=== PATIENT | male | born 2005 | race Caucasian/White ===

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

== ENCOUNTER 2024-12-02 17:30 | Emergency (ER) | payer MEDICAID, SELFPAY ==
--- NOTE | 2024-12-02 17:31 | ECG_ITS ---
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 Measurements Intervals [place] Rate: 89 P: 57 DC: 172 QRS: 206 QRSD: 98 T: 60 QT: 337 QTc: 412 Interpretive Statements SINUS RHYTHM INDETERMINATE AXIS INCOMPLETE RIGHT BUNDLE BRANCH BLOCK [90+ ms QRS DURATION, TERMINAL R IN V1/V2, 40+ ms S IN I/aVL/V4/V5/V6] EARLY REPOLARIZATION [ST ELEVATION WITH NORMALLY INFLECTED T-WAVE] No previous ECG available for comparison Electronically Signed On 12-06-2024 08:54:36 CDT by Ashu Deleon M.D. [id number]
--- NOTE | 2024-12-02 17:33 | ED_ITS ---
HPI - Syncope 2 General: Chief Complaint: Syncope Stated Complaint: Syncope, Abnormal EKG Time Seen by Provider: 12/02/24 17:30 Source: patient and EMS Mode of arrival: EMS Limitations: no limitations History of Present Illness: 19-year-old male states he is at [facility] today had been doing drills he states he sat down when he stood up he felt lightheaded diaphoretic and passed out. He states he had some lightheadedness since then but it is improved denies having syncopal event in the past but states he has felt lightheaded with activity before. He denies any chest pain denies any headache Associated symptoms: Deny abdominal pain, chest pain, fever(s), headache(s) or nausea Related Data Home Medications ?Medication ?Instructions ?Recorded ?Confirmed No Known Home Medications 07/07/2006/15 Allergies Allergy/AdvReac Type Severity Reaction Status Date / Time No Known Allergies Allergy Verified 07/07/20 12:09 Review of Systems 2 Const: Denies: fever(s), chills, body aches or change in appetite ENMT: Denies: throat pain or dental pain Card: Reports: syncope; Denies: chest pain Resp: Denies: dyspnea GI: Denies: abdominal pain, nausea, vomiting or diarrhea Musc: Denies: neck pain or back pain Skin/Breast: Denies: rash Neuro: Denies: headache(s) Physical Exam 2 Const: COMMON NORMALS: no acute distress, patient oriented x3 and healthy appearing HENMT: COMMON NORMALS: normocephalic and atraumatic HEAD & SCALP: n ormocephalic and atraumatic Eye: COMMON NORMALS: conjunctivae normal CONJUNCTIVA: Yes conjunctivae normal Neck/C-Spine: COMMON NORMALS: full ROM and supple Chest: COMMONS NORMALS: normal inspection of the chest and normal palpation of entire chest wall Resp: COMMON NORMALS: normal respiratory effort, No retractions, No use of accessory muscles and clear to auscultation bilaterally AUSCULTATION: clear to auscultation bilaterally Cardio: COMMON NORMALS: regular rate, regular rhythm and No murmurs present (Cardio) RATE: regular rate RHYTHM: regular rhythm Extremity: COMMON NORMALS: normal to inspection and full ROM Neuro: COMMON NORMALS: patient oriented x3, moves all extremities and no focal motor deficits Psych: COMMON NORMALS: mental status grossly normal, Normal thought process present and cooperative THOUGHT PROCESS: Normal thought process present Skin: COMMON NORMALS: no rashes or lesions noted and no wounds GENERAL SKIN EXAM: no rashes or lesions noted Course 2 Vital Signs: Vital signs: Vital Signs Temperature 98.2 F 12/02/24 18:04 Pulse Rate 70 12/02/24 18:04 Respiratory Rate 18 12/02/24 18:04 Blood Pressure 122/82 12/02/24 18:04 Pulse Oximetry 98 12/02/24 18:04 Oxygen Delivery Me thod Room Air 12/02/24 18:04 MDM - Syncope Medical Decision Making Patient presents after a syncopal event he has been well-appearing here normal vitals likely a vagal episode he stable for discharge follow-up PCP return if worsening. Medical Records I reviewed the patient's medical records. Lab Data I reviewed the patient's lab results. 12/02/24 17:22 12/02/24 17:22 Laboratory Results WBC 11.47 10^3/uL (4.5-13.0) 12/02/24 17:22 RBC 5.45 10^6/uL (3.85-5.65) 12/02/24 17:22 Hgb 16.50 g/dL (13.2-15.6) H 12/02/24 17:22 Hct 46.6 % (37-53) 12/02/24 17:22 MCV 85.5 fl (82-101) 12/02/24 17:22 MCH 30.3 pg (27-33) 12/02/24 17:22 MCHC 35.4 g/dL (30-55) 12/02/24 17:22 RDW 12.8 % (12.1-15.1) 12/02/24 17:22 Plt Count 210 10^3/cmm (157-399) 12/02/24 17:22 MPV 10.9 fL (7.4-10.4) H 12/02/24 17:22 Neut % (Auto) 70.4 % 12/02/24 17:22 Lymph % (Auto) 20.4 % 12/02/24 17:22 Dunn % (Auto) 7.9 % 12/02/24 17:22 Eos % (Auto) 0.3 % 12/02/24 17:22 Baso % (Auto) 0.4 % 12/02/24 17:22 Neut # (Auto) 8.06 10^3/uL (1.8-8.0) H 12/02/24 17:22 Lymph # (Auto) 2.3 10^3/uL (1.5-6.5) 12/02/24 17:22 Dunn # (Auto) 0.9 10^3/uL (0.2-0.9) 12/02/24 17:22 Eos # (Auto) 0.0 10^3/uL (0.0-0.8) 12/02/24 17:22 Baso # (Auto) 0.1 10^3/uL (0.0-0.1) 12/02/24 17:22 Nucleated RBC % (auto) 0 % 12/02/24 17:22 Nucleated RBCs # 0.0 /100WBC 12/02/24 17:22 Sodium 144 mmol/L (136-145) 12/02/24 17:22 Potassium 3.8 mmol/L (3.5-5.1) 12/02/24 17:22 Chloride 102 mmol/L (98-107) 12/02/24 17:22 Carbon Dioxide 20 mmol/L (22-29) L 12/02/24 17:22 Anion Gap 25.8 (5-19) H 12/02/24 17:22 BUN 13 mg/dL (6-20) 12/02/24 17:22 Creatinine 1.1 mg/dL (0.7-1.2) 12/02/24 17:22 GFR Calculation 85.3 mL/min (90-130) L 12/02/24 17:22 Glucose 101 mg/dL (65-115) 12/02/24 17:22 Calculated Osmolality 298 mOsm/kg (285-295) H 12/02/24 17:22 Calcium 10.1 mg/dL (8.5-10.5) 12/02/24 17:22 Total Bilirubin 0.6 mg/dL (0.15-1.2) 12/02/24 17:22 AST 20 U/L (0-40) 12/02/24 17:22 ALT 13 U/L (0-41) 12/02/24 17:22 Alkaline Phosphatase 92 U/L (40-130) 12/02/24 17:22 Total Protein 7.6 g/dL (6.6-8.7) 12/02/24 17:22 Albumin 5.2 g/dL (3.5-5.2) 12/02/24 17:22 Globulin 2.4 g/dL (1.3-4.6) 12/02/24 17:22 No radiology studies performed this visit EKG Data EKG 1: I personally reviewed and interpreted this EKG as follows: EKG interpretation date: 12/02/24 EKG interpretation time: 17:32 Interpretation: nsr hr [address] elevation qrs 98 qtc 384 Discharge Plan Discharge Patient Disposition: Home Clinical Impression: Syncope Condition: Stable Prescriptions: No Action No Known Home Medications Discharge Orders: Discharge ED (Routine); Ordered 12/02/24 Ordered By: Logan Mccord Referrals: Gideon Malave MD [Primary Care Provider, Pediatrics] Discharge Diet: Advance as tolerated Discharge Activity: Resume usual activity Patient Instructions: Syncope (ED) Print Language: Uzbek Coding Level of Care Code ED Software Technician for Clint Avendaño
--- OUTSIDE RECORDS SUMMARY | 2024-12-02 17:33 | XMS_ITS | Clinical Summary ---
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 08/21/2024 Rupture of UCL of right thumb 09/08/2021 Encounters Date Type Department Care Team Description 09/30/2024 External Device Data [facility] ABSTRACTION Provider, Abstract 09/17/2024 3:00 PM CDT - 09/17/2024 11:59 PM CDT Hospital Encounter [facility] [id number] [place] [id number] Discharge Disposition: Home or Self Care 09/15/2024 11:19 AM CDT - 09/15/2024 11:59 PM CDT Hospital Encounter [facility] [address] [place] [address] Discharge Disposition: Home or Self Care 09/10/2024 11:26 AM CDT - 09/10/2024 11:59 PM CDT Hospital Encounter [facility] [address] [place] [address] Discharge Disposition: Home or Self Care 09/05/2024 11:29 AM CDT - 09/05/2024 11:59 PM CDT Hospital Encounter [facility] [address] [place] [address] Discharge Disposition: Home or Self Care 09/04/2024 External Device Data STL ABSTRACTION Provider, Abstract 09/04/2024 External Device Data [facility] ABSTRACTION Provider, Abstract 09/04/2024 External Device Data [facility] ABSTRACTION Provider, Abstract 09/03/2024 11:28 AM CDT - 09/03/2024 11:59 PM CDT [facility] [address] [place] [address] Discharge Disposition: Home or Self Care 09/03/2024 External Device Data STL ABSTRACTION Provider, Abstract 09/02/2024 External Device Data STL ABSTRACTION Provider, Abstract from Last 3 Months Family History Medical History Relation Name Comments No Known Problems Father No Known Problems Mother Relation Name Status Comments Father Alive Mother Alive Social History Tobacco Use Types Packs/Day Years Used Date Smoking Tobacco: Never Smokeless Tobacco: Never Tobacco Cessation:Counseling Given: Not Answered Alcohol Use Standard Drinks/Week Comments Never 0 (1 standard drink = 0.6 oz pur e alcohol) Sex and Gender Information Value Date Recorded Sex Assigned at Male 08/21/2024 8:45 PM CDT Legal Sex Male 8:43 AM CDT Gender Identity Male 08/21/2024 8:45 PM CDT Sexual Orientation Not on file Last Filed Vital Signs Vital Sign Reading Time Taken Comments Blood Pressure 126/79 08/21/2024 1:31 PM CDT Pulse 119 04/18/2023 8:39 AM [employer] Temperature 37.6 C (99.6 F) 04/18/2023 8:39 AM [employer] Respiratory Rate 18 04/18/2023 8:39 AM [employer] Oxygen Saturation 96% 04/18/2023 8:39 AM [employer] Inhaled Oxygen Concentration - - Weight 72.6 kg (160 lb) 08/21/2024 1:31 PM CDT Height 182.9 cm (6') 08/21/2024 1:31 PM CDT Body Mass Index 21.7 08/21/2024 1:31 PM CDT Plan of Treatment Health Maintenance Due Date Last Done Comments CHLAMYDIA SCREENING (ANNUAL) 11-24 YEARS 12/01/2015 HPV VACCINES (1 - Male 3-dose series) 12/01/2019 DTAP/TDAP/TD VACCINES (2 - Tdap) 12/01/2023 03/23/20 06 HEPATITIS B VACCINES (1 of 3 - 19+ 3-dose series) 12/01/2023 INFLUENZA VACCINE (#1) 2024 03/23/2006, 2005 Medical Devices Implanted Type Area Inspector Set Up And Lay Out Device Identifier Shelf Expiration Date Model / Serial / Lot [place] Damari Swivelock 2.5x7mm [place] Eyelet [id number] - [id number] Implanted:Qty: 1 on 09/09/2021 by Rosette Watt MD at [facility] Right: Thumb [employer] 10/13/2025 [id number] / / [id number] [place] Suture 3.5x8.5mm Dx Swiveloc Xl Fe [id number] - [id number] Implanted:Qty: 1 on 09/09/2021 by Rosette Watt MD at [facility] Right: Thumb [employer] 01/13/2026 [id number] / / [id number] Insurance [facility] [id number] Advance Directives For more information, please contact: [phone] * Full Code (Latest Code Status on File) Date Activated Date Inactivated Comments 09/09/2021 8:28 AM 09/09/2021 2:52 PM
[2024-12-02 17:49] LABS: Hematocrit 46.6 % (37-53); Hemoglobin 16.50 g/dL (13.2-15.6); Mean Corpuscular HGB Conc 35.4 g/dL (30-55); Mean Corpuscular Hemoglobin 30.3 pg (27-33); Mean Corpuscular Volume 85.5 fl (82-101); Nucleated Red Blood Cells % 0 %; Platelet Count 210 10^3/cmm (157-399); Red Blood Count 5.45 10^6/uL (3.85-5.65); White Blood Count 11.47 10^3/uL (4.5-13.0)
[2024-12-02 18:04] VITALS: BP 122/82; PULSE 70; RESP 18; TEMP 36.8; O2SAT 98
[2024-12-02 18:12] LABS: Alanine Aminotransferase 13 U/L (0-41); Albumin Level 5.2 g/dL (3.5-5.2); Alkaline Phosphatase 92 U/L (40-130); Anion Gap 25.8 (5-19); Aspartate Amino Transferase 20 U/L (0-40); Blood Urea Nitrogen 13 mg/dL (6-20); Calcium 10.1 mg/dL (8.5-10.5); Carbon Dioxide 20 mmol/L (22-29); Chloride 102 mmol/L (98-107); Globulin 2.4 g/dL (1.3-4.6); Glucose 101 mg/dL (65-115); Osmolality Calculated 298 mOsm/kg (285-295); Potassium 3.8 mmol/L (3.5-5.1); Sodium 144 mmol/L (136-145); Total Protein 7.6 g/dL (6.6-8.7)
[2024-12-02 19:07] VITALS: BP 137/84; PULSE 76; O2SAT 100
[2024-12-02 19:09] VITALS: BP 129/80; PULSE 81; O2SAT 100
== END 2024-12-02 19:16 | disposition home or self-care (01) ==
PROVIDERS: Emergency Provider Emergency Medicine; PCP Pediatrics
DX: R55 Syncope and collapse (principal)
CPT/HCPCS: 80053; 85025; 93005; 96360; 96361; 99284; J7030